=== PATIENT | male | born 1990 | race Caucasian/White ===

== ENCOUNTER 2019-08-17 21:38 | Inpatient (IN) | payer MEDICAID, OTHER ==
[2019-08-17 22:09] LABS: Amphetamine Screen,Urine Not Detected (NotDetected); Barbiturate Screen,Urine Not Detected (NotDetected); Benzodiazepines Screen,Urine Not Detected (NotDetected); Cocaine Screen,Urine Not Detected (NotDetected); Methadone Screen, Urine Not Detected (NotDetected); Opiate Screen,Urine Not Detected (NotDetected); Oxycodone Screen, Urine Not Detected (NotDetected); Phencyclidine Screen,Urine Not Detected (NotDetected); Tricyclic Antidepressant,Urine Not Detected (NotDetected); Urn Cannabinoid Scrn Not Detected (NotDetected)
--- NOTE | 2019-08-17 22:15 | ED ---
Psych HPI - General Chief Complaint: Psychiatric Symptoms Stated Complaint: Mental health Time Seen by Provider: 08/17/19 21:40 Source: patient, police, EMS Mode of arrival: EMS - History of Present Illness Initial Comments: This is a 29-year-old male here for psychiatric evaluation. He hasn't taken all psychiatric medications as directed but admits to being severely suicidal today. Patient has severe depression denying drugs or alcohol abuse. Otherwise no modifying factors or change in symptoms MD Complaint: suicidal ideation, feels depressed -: unknown Associated Psychiatric Symptoms: depression, suicidal ideation History of same: Yes Quality: constant Improves With: none Associated Symptoms: denies other symptoms Treatments Prior to Arrival: placed on mental health hold If Self Harm: admits thoughts of self harm - Related Data Home Medications Medication Instructions Recorded Confirmed Divalproex ER [Depakote ER] 1,500 mg PO HS 08/17/19 08/17/19 Loratadine [Claritin] 10 mg PO DAILY 08/17/19 08/17/19 Sertraline [Zoloft] 50 mg PO DAILY 08/17/19 08/17/19 traZODone HCL 150 mg PO HS 08/17/19 08/17/19 Allergies Allergy/AdvReac Type Severity Reaction Status Date / Time lorazepam [From Ativan] Allergy Rash/Hives Verified 08/17/19 21:48 methylphenidate Allergy Unknown Verified 08/17/19 21:48 [From Ritalin] Childhood Penicillins Allergy Unknown Verified 08/17/19 21:48 Childhood Review of Systems ROS Statement: Those systems with pertinent positive or pertinent negative responses have been documented in the HPI. ROS Other: All systems not noted in ROS Statement are negative. Past Medical History Past Medical History: Seizure Disorder History of Any Multi-Drug Resistant Organisms: None Reported Past Surgical History: Orthopedic Surgery Past Psychological History: Anxiety, Bipolar, Depression, Schizophrenia Smoking Status: Current every day smoker Past Alcohol Use History: None Reported Past Drug Use History: Marijuana General Exam Limitations: no limitations General appearance: alert, in no apparent distress Head exam: Present: atraumatic, normocephalic, normal inspection Eye exam: Present: normal appearance, PERRL, EOMI. Absent: scleral icterus, conjunctival injection, periorbital swelling ENT exam: Present: normal exam, mucous membranes moist Neck exam: Present: normal inspection. Absent: tenderness, meningismus, lymphadenopathy Respiratory exam: Present: normal lung sounds bilaterally. Absent: respiratory distress, wheezes, rales, rhonchi, stridor Cardiovascular Exam: Present: regular rate, normal rhythm, normal heart sounds. Absent: systolic murmur, diastolic murmur, rubs, gallop, clicks GI/Abdominal exam: Present: soft, normal bowel sounds. Absent: distended, tenderness, guarding, rebound, rigid Extremities exam: Present: normal inspection, full ROM, normal capillary refill. Absent: tenderness, pedal edema, joint swelling, calf tenderness Back exam: Present: normal inspection Neurological exam: Present: alert, oriented X3, CN II-XII intact Psychiatric exam: Present: normal affect, normal mood Skin exam: Present: warm, dry, intact, normal color. Absent: rash Course Vital Signs 08/17/19 08/17/19 21:39 22:47 Temperature 97.5 F L Pulse Rate 74 89 Respiratory 20 22 Rate Blood Pressure 131/97 O2 Sat by Pulse 98 96 Oximetry - Reevaluation(s) Reevaluation #1: 08/18/19 00:54 Medical clear for psychiatric evaluation Medical Decision Making - Medical Decision Making 29 male to be admitted for inpatient psychiatric evaluation and treatment. Patient is agreeable to plan - Lab Data Lab Results 08/17/19 Range/Units 21:41 Urine Opiates Screen Not Detected (NotDetected) Ur Oxycodone Screen Not Detected (NotDetected) Urine Methadone Screen Not Detected (NotDetected) Ur Propoxyphene Screen Not Detected (NotDetected) Ur Barbiturates Screen Not Detected (NotDetected) U Tricyclic Antidepress Not Detected (NotDetected) Ur Phencyclidine Scrn Not Detected (NotDetected) Ur Amphetamines Screen Not Detected (NotDetected) U Methamphetamines Scrn Not Detected (NotDetected) U Benzodiazepines Scrn Not Detected (NotDetected) Urine Cocaine Screen Not Detected (NotDetected) U Marijuana (THC) Screen Not Detected (NotDetected) Disposition Clinical Impression: Depression, Suicidal ideation Disposition: TRANSFER TO PSYCH HOSP/UNIT Condition: Fair Is patient prescribed a controlled substance at d/c from ED?: No Referrals: None,Stated [Primary Care Provider] - 1-2 days
[2019-08-18] MEDS ORDERED: ACETAMINOPHEN TAB 325 MG TAB PO PRN (06:58)
[2019-08-18] MEDS ORDERED: ZIPRASIDONE 20 MG VIAL IM PRN (06:58)
[2019-08-18] MEDS ORDERED: LORazepam 1 MG TAB PO PRN (06:58)
[2019-08-18] MEDS ORDERED: MAG HYDROX/AL HYDROX/SIMETH 30 ML CUP PO PRN (06:58)
[2019-08-18] MEDS ORDERED: MAGNESIUM HYDROXIDE 2,400 MG/10 ML CUP PO PRN (06:58)
[2019-08-18] MEDS ORDERED: LORazepam 2 MG/ML INJ IM PRN (07:07)
[2019-08-18 08:12] LABS: Basophils # (A) 0.1 k/uL (0-0.2); Basophils % (A) 0 %; Eosinophils # (A) 0.3 k/uL (0-0.7); Eosinophils % (A) 2 %; HCT 47.8 % (39.0-53.0); HGB 16.4 gm/dL (13.0-17.5); Lymphocytes # (A) 2.2 k/uL (1.0-4.8); Lymphocytes % (A) 17 %; MCHC 34.2 g/dL (31.0-37.0); MCV 96.3 fL (80.0-100.0); Mean Platelet Volume 6.8; Monocytes # (A) 0.6 k/uL (0-1.0); Monocytes % (A) 5 %; Neutrophils # (A) 9.4 k/uL (1.3-7.7); Neutrophils % (A) 74 %; Platelet Count 289 k/uL (150-450); RBC 4.96 m/uL (4.30-5.90); RDW 12.1 % (11.5-15.5); WBC 12.7 k/uL (3.8-10.6)
[2019-08-18 08:19] LABS: ALT 23 U/L (4-49); AST 23 U/L (17-59); African American GFR (CKD) >90 (>60 ml/min/1.73 sqM); Albumin 3.9 g/dL (3.5-5.0); Alkaline Phosphatase 69 U/L (38-126); Anion Gap 4 mmol/L; Bilirubin, Delta 0.2 mg/dL (0.0-0.2); Bilirubin,Unconjugated 0.2 mg/dL (0.0-1.1); Blood Urea Nitrogen 16 mg/dL (9-20); Calcium 9.7 mg/dL (8.4-10.2); Carbon Dioxide 33 mmol/L (22-30); Chloride 103 mmol/L (98-107); Cholesterol 158 mg/dL (<200); Glucose 95 mg/dL (74-99); HDL Cholesterol 46 mg/dL (40-60); LDL Cholesterol,Calculated 93 mg/dL (0-99); Non-African American GFR(CKD) >90 (>60 ml/min/1.73 sqM); Potassium 4.6 mmol/L (3.5-5.1); Sodium 140 mmol/L (137-145); Total Bilirubin 0.4 mg/dL (0.2-1.3); Total Protein 6.4 g/dL (6.3-8.2); Triglycerides 96 mg/dL (<150)
[2019-08-18] MEDS ORDERED: NICOTINE 14MG/24HR PATCH TRANSDERM SCH (09:00)
--- NOTE | 2019-08-18 12:06 | P.MDCNMH ---
History of Present Illness H&P Date: 08/18/19 Chief Complaint: Medical management 29-year-old male with PMH of seizure disorder and psychiatric history presents the ED for suicidal ideation. He has been admitted to mental health unit for treatment. [facility] [place] physicians has been consulted for medical management of this patient. Patient was seen and examined. No acute events overnight. Patient reports a history of seizure disorder. He reports compliance with Depakote. Patient states that he follows a neurologist out of [place] but cannot remember the name. His last seizure was a few months ago. Patient also reports smoking a pack of cigarettes of day for the past 7 years. He denies any alcohol or illicit drug use. Patient complains of a dry cough but states that he is getting over an upper respiratory infection. He denies any headache, lower extremity edema, nausea or vomiting, fever or chills, chest pain, shortness of breath, palpitations, changes in urination or bowel habits. No changes in a ppetite or weight. He denies any dizziness, numbness/weakness/tingling of the extremities. Patient states that he would like to go home and is requesting a prescription for Klonopin. Review of Systems Pertinent positives and negatives as discussed in HPI, a complete review of systems was performed and all other systems are negative. Past Medical History Past Medical History: Seizure Disorder History of Any Multi-Drug Resistant Organisms: None Reported Past Surgical History: Orthopedic Surgery Past Psychological History: Anxiety, Bipolar, Depression, Schizophrenia Smoking Status: Current every day smoker Past Alcohol Use History: None Reported Past Drug Use History: Marijuana Medications and Allergies Home Medications Medication Instructions Recorded Confirmed Type Divalproex ER [Depakote ER] 1,500 mg PO HS 08/17/19 08/17/19 History Loratadine [Claritin] 10 mg PO DAILY 08/17/19 08/17/19 History Sertraline [Zoloft] 50 mg PO DAILY 08/17/19 08/17/19 History traZODone HCL 150 mg PO HS 08/17/19 08/17/19 History Allergies Allergy/AdvReac Type Severity Reaction Status Date / Time lorazepam [From Ativan] Allergy Rash/Hives Verified 08/17/19 21:48 methylphenidate Allergy Unknown Verified 08/17/19 21:48 [From Ritalin] Childhood Penicillins Allergy Unknown Verified 01/17/20 21:48 Childhood Physical Exam Vitals: Vital Signs Temp Pulse Pulse Resp BP BP Pulse Ox 08/18/19 07:45 76 16 130/79 97 08/18/19 06:55 97.7 F 71 20 122/65 98 08/18/19 02:00 97.7 F 70 16 119/81 98 08/17/19 22:47 89 22 96 08/17/19 21:39 97.5 F L 74 20 131/97 98 Intake and Output 08/17/19 08/18/19 08/18/19 22:59 06:59 14:59 Other: Weight 90.718 kg 89.721 kg General: [non toxic], [no distress], [appears at stated age] Derm: [warm], [dry] Head: [atraumatic], [normocephalic], [symmetric] Eyes: [EOMI], [no lid lag], [anicteric sclera] Mouth: [no lip lesion], [mucus membranes moist] Cardiovascular: [S1S2 reg], [no murmur], [positive posterior tibial pulse bilateral], Lungs: [CTA bilateral], [no rhonchi, no rales] , [no accessory muscle use] Abdominal: [soft], [ nontender to palpation], [no guarding], [no appreciable organomegaly] Ext: [no gross muscle atrophy], [no edema], [no contractures] Neuro: [ CN II-XI grossly intact], [no focal neuro deficits] Psych: [Alert], [oriented], [appropriate affect] Cranial Nerve Examination - Cranial Nerves Cranial Nerve II- Optic: Intact Cranial Nerve III- Oculomotor: Intact Cranial Nerve IV- Trochlear: Intact Cranial Nerve V- Trigeminal: Intact Cranial Nerve - Abducens: Intact Cranial Nerve VII- Facial: Intact Cranial Nerve VIII- Auditory: Intact Cranial Nerve IX- Glossopharyngeal: Intact Cranial Nerve X- Vagus: Intact Cranial Nerve XI- Accessory: Intact Cranial Nerve XII- Hypoglossal: Intact Results CBC & Chem 7: 08/18/19 07:38 08/18/19 07:38 Labs: Abnormal Lab Results - Last 24 Hours (Table) 08/18/19 08/18/19 Range/Units 07:38 07:38 WBC 12.7 H (3.8-10.6) k/uL Neutrophils # 9.4 H (1.3-7.7) k/uL Carbon Dioxide 33 H (22-30) mmol/L Assessment and Plan Assessment: Seizure disorder Leukocytosis Obesity Suicidal ideation Valproic level within normal limits. UDS negative. Plans: Continue Depakote. Leukocytosis of 12.7. Patient reports recovering from URI. No signs of infection. Patient afebrile. Plans: Continue to monitor. BMI 28.4. Plans: Structured weight loss program. Plans: Management as per psychiatry. Thank you for this consult. Please call with any additional questions or concerns.
[2019-08-18] MEDS: ARIPiprazole 10 MG TAB PO SCH (13:20)
[2019-08-18] MEDS: SERTRALINE 50 MG TAB PO SCH (13:22)
[2019-08-18] MEDS: hydrOXYzine PAMOATE 25 MG CAP PO PRN (13:22)
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
[2019-08-18 14:41] LABS: Hemoglobin A1C 5.4 % (4.0-6.0)
[2019-08-18] MEDS: traZODone HCL 50 MG TAB PO SCH (22:06)
[2019-08-18] MEDS: DIVALPROEX ER 500 MG TAB.ER.24H PO SCH (22:06)
[2019-08-19] MEDS: NICOTINE POLACRILEX 2 MG GUM BUCCAL PRN ×2 (05:06→10:33)
[2019-08-19] MEDS: ARIPiprazole 10 MG TAB PO SCH (10:33)
[2019-08-19] MEDS: SERTRALINE 50 MG TAB PO SCH (10:33)
[2019-08-19] MEDS: hydrOXYzine PAMOATE 25 MG CAP PO PRN ×2 (10:33→20:55)
--- NOTE | 2019-08-19 16:40 | P.PN ---
Progress Note - Text Progress Note Date: 08/19/19 Interval history: Patient is seen again in cross coverage today. He reports that he is on very well with the Vistaril, it has helped toned down his level of anxiety. He has talked with his grandpa again today and found out that he is able to return there until he finds another place to go to. Reports he has talked with social work staff. He does not seem to voice any adverse psychotropic medication side effects. Mental status exam: He is alert and cooperative with the interview. His speech is fluent, not rapid pressured. His thought processes are organized. His mood he describes is doing well. He denies any thoughts of harm to self others and denies any auditory hallucinations. He does not make any gosia delusional statements. He does not display any agitation. Plan: Patient will be maintained on current psychotropic medication regimen. Continue to monitor for any medication side effects and monitor his ongoing response to treatment.
[2019-08-19] MEDS: DIVALPROEX ER 500 MG TAB.ER.24H PO SCH (20:54)
[2019-08-19] MEDS: traZODone HCL 50 MG TAB PO SCH (20:54)
[2019-08-20 07:06] VITALS: RESP 16
[2019-08-20] MEDS: ARIPiprazole 10 MG TAB PO SCH (08:21)
[2019-08-20] MEDS: SERTRALINE 50 MG TAB PO SCH (08:21)
[2019-08-20] MEDS: hydrOXYzine PAMOATE 25 MG CAP PO PRN ×2 (08:22→20:35)
--- NOTE | 2019-08-20 10:58 | P.PN ---
Progress Note - Text Interval history: The patient is found in the hallway at the front desk auxiliary he follows me to an interview room. He was admitted over the weekend I did review the psychiatric evaluation. The patient presented reporting auditory hallucinations directing harm to others. He states that he was experiencing no symptoms because he was off of Klonopin. He was placed on Vistaril here on the mental health unit he states it's working very well. He states his hallucinations have completely stopped. He reports no auditory or visual hallucinations he is reporting no thoughts of harming himself or others he indicates he did shower today he reports he is eating and sleeping adequately. He has been speaking to his grandparents via phone. He states he has no thoughts intent or plan of harming his grandparents or anyone else. Mental status exam: The patient is a male appearing his stated age she has a disheveled appearance his hair is sticking up he is dressed in a T-shirt and shorts. He does have a body odor. Eye contact is appropriate speech is fluent and spontaneous nonpressured. As noted he reports no suicidal or homi cidal ideation intent or plan. As noted he is reporting no auditory or visual hallucinations. Indicates he feels safe he is describing no paranoid or persecutory thinking. Reasoning appears to be concrete throughout the session. He demonstrates no verbal or physical aggressiveness he demonstrates no involuntary repetitive movements. Insight and judgment improving. Plan: The patient will continue on his current psychotropic medication. He reports a very quick resolution of all his symptoms. His urine drug screen was negative. We will continue to monitor him for safety. Social work will contact family. He is encouraged to fully participate in the milieu. Vital signs reviewed.
[2019-08-20] MEDS: traZODone HCL 50 MG TAB PO SCH (20:35)
[2019-08-20] MEDS: DIVALPROEX ER 500 MG TAB.ER.24H PO SCH (20:35)
[2019-08-21 07:15] VITALS: BP 127/72; PULSE 71; TEMP 97.8
[2019-08-21] MEDS: SERTRALINE 50 MG TAB PO SCH (08:18)
[2019-08-21] MEDS: hydrOXYzine PAMOATE 25 MG CAP PO PRN (08:18)
[2019-08-21] MEDS: ARIPiprazole 10 MG TAB PO SCH (08:18)
--- NOTE | 2019-08-21 09:17 | P.DS ---
Providers Date of admission: 08/18/19 06:45 Expected date of discharge: 08/21/19 Attending physician: Jan Zeng Consults: 08/18/19 06:58 Consult Physician Routine Consulting Provider: Adelso Dunham Consult Reason/Comments: For H & P for Medical Follow Up Do you want consulting provider notified?: Yes Primary care physician: Stated None - Discharge Diagnosis(es) (1) Schizoaffective disorder, bipolar type Current Visit: Yes Status: Acute Priority: High Hospital Course: Brief summary of admission note: This patient is a 29-year-old male who was admitted to the mental health unit for acute symptoms of psychosis. He indicated he was experiencing command auditory hallucinations directing him to harm others. He felt that the voices started because he needed his Klonopin to treat acute anxiety. He has been off of the Klonopin for approximately 2-3 months. He described having a fluctuating mood. He reports he was compliant with his other psychotropic medications. For full details please refer to the psychiatric evaluation completed by Dr. Mckeon on 08/18/2019. Summary of hospital course: The patient was admitted to the mental health unit voluntarily. He was initially seen by Dr. Mckeon over the weekend I assumed care of the patient yesterday. The patient reported an immediate resolution of symptoms once on the mental health unit. He was started on Vistaril for anxiety and found that very effective. Both yesterday and today he states he is experiencing no auditory or visual hallucinations he reports no paranoid thinking. He states he feels safe and has no thoughts of harming himself or others. He has been eating and sleeping appropriately. He is attended some groups. He has been positive cooperative and easily directed. He was seen by internal medicine for routine history and physical exam. Social work met with the patient to complete a psychosocial assessment. Social work has contacted the patient's grandfather and the patient's guardian. The patient plans to return home with his grandparents and they are agreeable. Mental status exam: The patient's is alert he is pleasant and cooperative. He has a disheveled appearance hygiene is impaired. He is dressed in a T-shirt and shorts. Eye contact is good. Speech is fluent and spontaneous nonpressured. He reports his mood is good. He reports no suicidal ideation intent or plan. He reports no homicidal ideation intent or plan. Specifically he denies having any thoughts of harming his grandparents or any other family member. He demonstrates no tangential thinking loose associations or flight of ideas. He is reporting no auditory or visual hallucinations. He specifically states he is experiencing no command auditory hallucinations. He indicates he feels safe he is reporting no paranoid or persecutory themes. He demonstrates no objective evidence of psychosis. Insight and judgment have improved. He demonstrates future oriented thinking. He demonstrates no verbal or physical aggressiveness. Impressions 1. Schizoaffective disorder, bipolar type, anxiety unspecified, rule out cannabis use disorder Plan: The patient will be discharged mental health unit today he will return residing with his grandparents. He will continue on Abilify 10 mg daily, Depakote ER 1500 mg at bedtime, Zoloft 50 mg daily, Vistaril 25 mg twice daily. He may continue trazodone 150 mg at bedtime. It appears this episode was more anxiety related than it was true psychosis. Consider titrating Zoloft further. He will continue to follow with [facility] for outpatient mental health services. He is instructed to abstain from any use of alcohol marijuana or any illicit drugs. We discussed that even the marijuana could precipitate symptoms of psychosis and elevate his safety risk. He does not feel that he requires inpatient chemical dependency treatment for his marijuana use. At this time there is no imminent safety risk. He is appropriate for transition to outpatient care. He is instructed to return to the hospital if any acute safety concerns. Patient Condition at Discharge: Stable Plan - Discharge Summary Discharge Rx Participant: No New Discharge Prescriptions: New ARIPiprazole [Abilify] 10 mg PO DAILY #30 tab Nicotine Polacrilex [Nicorette] 2 mg BUCCAL Q2HR PRN #60 gum PRN Reason: Nicotine Cravings hydrOXYzine PAMOATE [Vistaril] 25 mg PO BID PRN #60 cap PRN Reason: Anxiety Continue Divalproex ER [Depakote ER] 1,500 mg PO HS #45 tab traZODone HCL 150 mg PO HS #30 tab Sertraline [Zoloft] 50 mg PO DAILY #30 tab Discontinued Loratadine [Claritin] 10 mg PO DAILY Discharge Medication List ARIPiprazole [Abilify] 10 mg PO DAILY #30 tab 08/21/19 [Rx] Divalproex ER [Depakote ER] 1,500 mg PO HS #45 tab 08/21/19 [Rx] Nicotine Polacrilex [Nicorette] 2 mg BUCCAL Q2HR PRN #60 gum 08/21/19 [Rx] Sertraline [Zoloft] 50 mg PO DAILY #30 tab 08/21/19 [Rx] hydrOXYzine PAMOATE [Vistaril] 25 mg PO BID PRN #60 cap 08/21/19 [Rx] traZODone HCL 150 mg PO HS #30 tab 08/21/19 [Rx] Follow up Appointment(s)/Referral(s): None,Stated [Primary Care Provider] - 1-2 days
== END 2019-08-21 11:31 | disposition home or self-care (01) | DRG 885 ==
LOC: EEVIPCON 21:38 → EC 21:38 → 3MHU 08-18 06:45
PROVIDERS: ADMIT Psychiatry & Neurology Psychiatry; ATTEND Psychiatry & Neurology Psychiatry
DX: F25.0 Schizoaffective disorder, bipolar type (principal); R45.851 Suicidal ideations; F41.9 Anxiety disorder, unspecified; F17.200 Nicotine dependence, unspecified, uncomplicated; F12.90 Cannabis use, unspecified, uncomplicated; G40.909 Epilepsy, unspecified, not intractable, without status epilepticus; Z79.899 Other long term (current) drug therapy; Z81.8 Family history of other mental and behavioral disorders
CPT/HCPCS: 80053; 80061; 80164; 80306; 82075; 82248; 83036; 84443; 85025; 99285